=== PATIENT | female | born 1950 | race Caucasian/White ===

== ENCOUNTER 2025-02-08 13:20 | Emergency (ER) | payer MEDICARE, SELFPAY ==
[2025-02-08 13:37] VITALS: BP 170/88; PULSE 73; RESP 16; TEMP 36.2; O2SAT 98
--- NOTE | 2025-02-08 13:50 | ED.LOWEXIN ---
HPI - Extremity Injury (Lower) General Chief Complaint: Extremity Problem,Nontraumatic Stated Complaint: left leg pain Time Seen by Provider: 02/08/25 13:50 Source: patient Mode of arrival: ambulatory Limitations: no limitations History of Present Illness HPI Narrative: 75yo F presents with c/o L knee pain for 3 wks. Pain started after helping friend move. Had been on her feet alot, packing and carrying boxes. Really noticed pain after moving a desk. Pain to posterior aspect of L knee. Worse when ambulatory. All systems reviewed and negative except as noted above. Related Data Home Medications ?Medication ?Instructions ?Recorded ?Confirmed ?Last Taken ?Type bimatoprost 0.01 % eye drops 1 drp EACH EYE QPM 02/08/25 02/08/25 Unknown History ([place]) metformin 500 mg tablet,extended 500 mg PO QPM 02/08/25 02/08/25 Unknown History release 24 hr Allergies Allergy/AdvReac Type Severity Reaction Status Date / Time ciprofloxacin Allergy Mild Other Verified 02/08/25 13:24 flurbiprofen Allergy Mild Other Verified 02/08/25 13:24 ibuprofen Allergy Mild Other Verified 02/08/25 13:24 levofloxacin Allergy Mild Other Verified 02/08/25 13:24 naproxen Allergy Mild Other Verified 02/08/25 13:24 ofloxacin Allergy Mild Other Verified 02/08/25 13:24 CIPROFLOXACIN HCL Allergy Mild Other Uncoded 02/08/25 13:24 QUINALONES Allergy Mild Other Uncoded 02/08/25 13:24 Review of Systems Review of Systems: CONSTITUTIONAL: Denies fever, chills, or sweats. EYES: Denies visual changes, redness, or discharge. ENT: Denies rhinorrhea, congestion, sore throat, or otalgia. CARDIOVASCULAR: Denies chest pain, palpitations, or edema. RESPIRATORY: Denies cough or dyspnea. GASTROINTESTINAL: Denies abdominal pain, nausea, vomiting, or diarrhea. GENITOURINARY: Denies dysuria or hematuria. SKIN: Denies rash or itching. MUSCULOSKELETAL: Denies back pain, joint pain, or myalgia. Reports pain to posterior aspect left knee NEUROLOGIC: Denies headache, numbness, or weakness. PSYCHIATRIC: Denies anxiety or depression. All other systems reviewed are negative, except as documented in HPI. [facility] Comments At time of signature, agree with nursing past medical, surgical, social and family history. There is no relevant family history pertinent to the presenting complaint. Exam Narrative: GENERAL: This is a well-nourished, well-developed patient, in no apparent distress. HEAD: normocephalic, atraumatic. EYES: PERRL. Sclera clear/white. Vision is grossly intact. EARS: External ears normal, NOSE: External nose normal NECK: Neck supple, non-tender without lymphadenopathy, masses or thyromegaly. CARDIOVASCULAR: Regular rate and rhythm without murmurs, gallops, or rubs. RESPIRATORY: Clear to auscultation. Breath sounds equal bilaterally. No wheezes, rales, or rhonchi. SKIN: warm, Dry, intact with no suspicious lesions or rash, good texture and turgor. NEURO: awake, alert, and oriented to person, place and time. There were no obvious focal neurologic abnormalities. EXTREMITIES: No joint tenderness, effusion, or edema noted. bilateral calf circumference 48 cm. Normal range of motion. Course Course Level of Care: Express Care Visit Vital Signs Vital signs: Vital Signs Temperature 36.2 C L 02/08/25 13:37 Pulse Rate 73 02/08/25 13:37 Respiratory Rate 16 02/08/25 13:37 Blood Pressure 170/88 H 02/08/25 13:37 Pulse Oximetry 98 02/08/25 13:37 Oxygen Delivery Room Air 02/08/25 13:37 Temperature 36.2 C L 02/08/25 13:37 Pulse Rate 73 02/08/25 13:37 Respiratory Rate 16 02/08/25 13:37 Blood Pressure 170/88 H 02/08/25 13:37 Pulse Oximetry 98 02/08/25 13:37 Oxygen Delivery Room Air 02/08/25 13:37 Reviewed MDM - Extremity Injury (Lower) MDM Narrative Medical decision making narrative: x-ray of left knee normal. No tenderness on exam. Normal range of motion. Recommend patient continue Tylenol, ice, elevation. Will see primary care physician as needed. Please be advised this is a medical document. It is intended for [id number] communication. It is written in medical language and may contain unfamiliar abbreviations or verbiage. Medical documents are intended to carry relevant information, facts as evident, and the clinical opinion of the practitioner at the time of the encounter. This report may have been done utilizing a voice recognition system. Attempts have been made to correct errors. However, there may be uncorrected grammatical, spelling, and recognition errors present. The file time of this note does not necessarily represent the time of service. Imaging Data My impression: agree with radiologist Radiologist's impression: Left Knee Technique: AP, lateral, and sunrise views were obtained. Clinical History: Pain Findings: No fracture or dislocation is seen. Osseous alignment is anatomic. Joint spaces are preserved without degenerative or erosive change. Soft tissues are unremarkable. No joint effusion is seen. Impression: Unremarkable left knee radiographs. Discharge Plan Discharge Clinical Impression: Strain of left knee Patient Disposition: Home, Self-Care Condition: Stable Instructions: Knee Pain (ED) Additional Instructions: the x-ray of your left knee was normal. Take Tylenol every 6-8 hours as needed for pain. Elevate when at rest. Apply ice as needed for pain. Avoid activities that increase pain to left knee. If pain not improving in the next 2-3 weeks follow-up with your primary care physician for further evaluation. Patient Language: Upper Sorbian Prescriptions: No Action Lumigan 0.01 % drops 1 drp EACH EYE QPM metformin 500 mg tablet extended release 24 hr 500 mg PO QPM Follow-up/Referrals: Say,MD Amaral ([place]) [Primary Care Provider] - Time of Disposition: 14:39
== END 2025-02-08 14:44 | disposition home or self-care (01) ==
PROVIDERS: Emergency Provider Nurse Practitioner Family; PCP Internal Medicine
DX: S86.912A Strain of unspecified muscle(s) and tendon(s) at lower leg level, left leg, initial encounter (principal); X50.0XXA Overexertion from strenuous movement or load, initial encounter; Y93.E6 Activity, residential relocation; E11.39 Type 2 diabetes mellitus with other diabetic ophthalmic complication; H42 Glaucoma in diseases classified elsewhere; Z79.84 Long term (current) use of oral hypoglycemic drugs
CPT/HCPCS: 73562; 99203; G0463